=== PATIENT | male | born 1985 | race Caucasian/White ===

== ENCOUNTER 2024-02-27 19:57 | Emergency (ER) | payer MEDICAID ==
[~2024-02-27] VITALS: Ht 170.2 cm; Wt 59.0 kg
== END 2024-02-27 22:39 | disposition home or self-care (01) ==
LOC: ER 19:57
DX: S61.012A Laceration without foreign body of left thumb without damage to nail, initial encounter (principal); W26.0XXA Contact with knife, initial encounter
CPT/HCPCS: 12002; 99282-25